=== PATIENT | male | born 1990 | race Caucasian/White ===

== ENCOUNTER 2019-12-15 21:46 | Emergency (ER) | payer SELFPAY ==
[~2019-12-15] VITALS: Ht 177.8 cm; Wt 90.7 kg
[2019-12-15 22:31] VITALS: BP 137/87
[2019-12-15] MEDS ORDERED: KETOROLAC TROMETH 60MG/2ML VIAL IM ONE (23:45)
== END 2019-12-16 00:10 | disposition home or self-care (01) ==
LOC: EDSEX 21:46 → ER 21:46
DX: S92.314A Nondisplaced fracture of first metatarsal bone, right foot, initial encounter for closed fracture (principal); X58.XXXA Exposure to other specified factors, initial encounter; Y93.89 Activity, other specified; Y92.89 Other specified places as the place of occurrence of the external cause; Y99.8 Other external cause status
CPT/HCPCS: 29515; 73630; 96372; 99283; J1885

== ENCOUNTER 2020-08-14 23:02 | Emergency (ER) | payer OTHER ==
[~2020-08-14] VITALS: Ht 177.8 cm; Wt 90.7 kg
[2020-08-14] MEDS ORDERED: CLINDAMYCIN 900MG IV 50 ML IV ONE (23:45)
[2020-08-14] MEDS ORDERED: SODIUM CHLORIDE 0.9% 1,000 ML IV ONE (23:45)
[2020-08-15] MEDS ORDERED: KETOROLAC TROMETH 30 MG/ML 1ML VIAL IV ONE
[2020-08-15] MEDS ORDERED: SODIUM CHLORIDE 0.9% 1,000 ML IV ONE (00:45)
[2020-08-15 01:40] VITALS: BP 124/76
== END 2020-08-15 02:07 | disposition home or self-care (01) ==
LOC: ER 23:02
DX: K02.9 Dental caries, unspecified (principal); K05.30 Chronic periodontitis, unspecified; F17.210 Nicotine dependence, cigarettes, uncomplicated
CPT/HCPCS: 96365; 96366; 96375; 99284; J1885; J3490; J7030